=== PATIENT | female | born 1985 ===

== ENCOUNTER 2020-12-05 16:10 | Observation (INO) | payer MEDICAID, OTHER ==
[2020-12-05] MEDS ORDERED: PREN27TA7 PO (17:59)
== END 2020-12-05 18:40 | disposition home or self-care (01) ==
LOC: LDRP 16:10
PROVIDERS: ADMIT Obstetrics & Gynecology; ATTEND Obstetrics & Gynecology
DX: O62.9 Abnormality of forces of labor, unspecified (principal); Z3A.39 39 weeks gestation of pregnancy
CPT/HCPCS: 59025; 81002; 94760; G0378; 76805; 84112

== ENCOUNTER 2021-07-04 02:18 | Emergency (ER) | payer MEDICAID, OTHER ==
[~2021-07-04] VITALS: Ht 167.6 cm; Wt 77.3 kg
[~2021-07-04 02:18] MED LIST: PREN27TA7 PO
[2021-07-04 03:36] LABS: Basophils # (auto) 0.1 10 ^3/uL (0-0.2); Basophils % (auto) 0.8 % (0.0-2.0); Eosinophils # (auto) 0.1 10 ^3/uL (0-0.8); Hematocrit 39.6 % (36.0-46.0); Hemoglobin 13.6 g/dL (12.2-16.2); Lymphocytes # (auto) 1.1 10 ^3/uL (0.4-5.4); Mean Corpuscular Hgb Conc. 34.4 g/dL (32.0-36.0); Mean Corpuscular Volume 81.5 fL (80.0-100.0); Monocytes # (auto) 0.8 10 ^3/uL (0-1.3); Monocytes % (auto) 9.8 % (0.0-12.0); Neutrophils # (auto) 6.4 10 ^3/uL (1.6-8.6); Neutrophils % (auto) 75.4 % (37.0-80.0); Nucleated Red Blood Cells % 0.1 %; Red Blood Cells 4.85 10^6/uL (4.0-5.20); Red Cell Distribution Width 13.3 % (11.8-14.3); White Blood Cell 8.5 10^3/uL (4.4-10.8)
[2021-07-04 03:55] LABS: Albumin 3.7 g/dL (3.4-5.0); Calcium 9.2 mg/dL (8.5-10.1); Potassium 3.7 mmol/L (3.5-5.1)
[2021-07-04 04:00] LABS: Bilirubin, Total 1.3 mg/dL (0.2-1.0); Total Protein 7.9 g/dL (6.4-8.2)
[2021-07-04] MEDS ORDERED: MORPHINE SULFATE 4 MG/ML SYR/VIAL IV ONE (11:15)
[2021-07-04] MEDS ORDERED: ONDANSETRON HCL 4 MG/2 ML VIAL IV ONE (11:15)
[2021-07-04 13:10] VITALS: BP 121/82
== END 2021-07-04 14:00 | disposition short-term general hospital (02) ==
LOC: ER 02:18
DX: R10.13 Epigastric pain (principal); R74.8 Abnormal levels of other serum enzymes; Z79.899 Other long term (current) drug therapy; Z20.822 Contact with and (suspected) exposure to COVID-19
CPT/HCPCS: 36415; 74176; 76705; 80053; 83690; 84702; 85025

== ENCOUNTER 2025-01-18 19:32 | Emergency (ER) | payer MEDICAID ==
[~2025-01-18] VITALS: Ht 167.6 cm; Wt 76.8 kg
[2025-01-18 20:07] VITALS: BP 121/85; PULSE 80; RESP 18; TEMP 98.3
[2025-01-18] MEDS: KETOROLAC TROMETH 60MG/2ML VIAL IM ONE (20:16)
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
[2025-01-18] MEDS ORDERED: IBUP-1454 PO (21:00)
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
[2025-01-18 21:09] VITALS: O2SAT 99
== END 2025-01-18 21:00 | disposition home or self-care (01) ==
LOC: ER 19:32
DX: S16.1XXA Strain of muscle, fascia and tendon at neck level, initial encounter (principal); S39.012A Strain of muscle, fascia and tendon of lower back, initial encounter; M51.360 Other intervertebral disc degeneration, lumbar region with discogenic back pain only; Z79.899 Other long term (current) drug therapy; V43.52XA Car driver injured in collision with other type car in traffic accident, initial encounter; Y93.89 Activity, other specified; Y92.488 Other paved roadways as the place of occurrence of the external cause; Y99.8 Other external cause status
CPT/HCPCS: 72040; 72100; 96372; 99284; J1885